=== PATIENT | female | born 1995 | race Caucasian/White ===

== ENCOUNTER 2022-04-24 14:40 | Outpatient (CLI) | payer OTHER, SELFPAY ==
--- NOTE | ~2022-04-24 | MR_ITS ---
EXAMINATION: MR knee RT wo con DATE: 04/24/2022 15:26 INDICATION: Right knee pain x3 months, fell on kneecap. TECHNIQUE: Magnetic resonance imaging (MRI) of the right knee was performed without intravenous contr ast. Sequences included axial PD-weighted FS FSE, coronal PD-weighted FSE and PD-weighted FS FSE, sag ittal PD-weighted FSE, and sagittal T2-weighted FS FSE. COMPARISON: None. FINDINGS: Medial compartment: Medial meniscus intact. Focal partial thickness cartilage signal abnormality on the weightbearing cuong face of the MFC. Lateral compartment: Meniscus and cartilage intact. Patellofemoral compartment: Patellofemoral cartilage and retinacula intact. Quadriceps and patellar tendon enthesopathy. Ligaments and tendons: ACL, PCL, MCL, and LCL are intact. Remaining flexor and extensor tendons are intact. Fluid: Small volume joint fluid. No abnormal fluid collection. Osseous/other: No suspicious focal or diffuse marrow signal. Marrow reconversion. IMPRESSION: 1. No internal derangement. 2. Mild partial thickness cartilage signal abnormality on the weightbearing surface of the MFC. 3. Quadriceps and patellar tendon enthesopathy. Reviewed, dictated and finalized at location [facility] [employer] IMPRESSION: 1. No internal derangement. 2. Mild partial thickness cartilage signal abnormality on the weightbearing cuong face of the MFC. 3. Quadriceps and patellar tendon enthesopathy.
== END 2022-04-24 14:41 | disposition home or self-care (01) ==
PROVIDERS: Visit Provider Orthopaedic Surgery
DX: M25.561 Pain in right knee (principal); M76.9 Unspecified enthesopathy, lower limb, excluding foot; R93.6 Abnormal findings on diagnostic imaging of limbs
CPT/HCPCS: 73721